=== PATIENT | male | born 1970 | race Caucasian/White ===

== ENCOUNTER 2017-06-16 06:13 | Emergency (ER) | payer OTHER ==
[2017-06-16] MEDS: ACETAMINOPHEN 500 MG TAB PO (07:22)
[2017-06-16] MEDS: KETOROLAC 30 MG INJ IV (07:25)
[2017-06-16 07:32] LABS: ADD MAN DIFF? NO
[2017-06-16 07:39] LABS: BASOPHIL # 0.1 10^3/ul (0.0-0.1); BASOPHILS % 0.5 % (0.0-2.0); EOSINOPHILS # 0.1 10^3/ul (0.0-0.5); EOSINOPHILS % 0.5 % (0.0-7.0); HEMATOCRIT 38.2 % (42.0-52.0); HEMOGLOBIN 13.5 g/dl (14.0-18.0); LYMPHOCYTES # 1.7 10^3/ul (0.8-2.9); MEAN CORPUSCULAR HEMOGLOBIN 30.9 pg (29.0-33.0); MEAN CORPUSCULAR HGB CONC 35.3 g/dl (32.0-37.0); MEAN CORPUSCULAR VOLUME 87.4 fl (82.0-101.0); MEAN PLATELET VOLUME 8.4 fl (7.4-10.4); MONOCYTE # 1.4 10^3/ul (0.3-0.9); MONOCYTES % 9.2 % (0.0-11.0); NEUTROPHIL # 12.1 10^3/ul (1.6-7.5); NEUTROPHILS % 78.1 % (39.0-77.0); PLATELET COUNT 270 10^3/UL (140-415); RED BLOOD COUNT 4.37 10^6/ul (4.70-6.10); RED CELL DISTRIBUTION WIDTH 11.9 % (11.5-14.5)
[2017-06-16 07:39] LABS: WHITE BLOOD COUNT 15.5 10^3/ul (4.8-10.8)
[2017-06-16 08:00] LABS: ALANINE AMINOTRANSFERASE 26 IU/L (13-69); ALBUMIN 4.4 g/dl (3.3-4.9); ALBUMIN/GLOBULIN RATIO 1.25; ALKALINE PHOSPHATASE 70 IU/L (42-121); ANION GAP 16 (8-16); ASPARTATE AMINO TRANSFERASE 18 IU/L (15-46); BILIRUBIN,INDIRECT 0.5 mg/dl (0-1.1); BILIRUBIN,TOTAL 0.5 mg/dl (0.2-1.3); BLOOD UREA NITROGEN 15 mg/dl (7-20); CALCIUM 9.4 mg/dl (8.4-10.2); CARBON DIOXIDE 31 mmol/L (21-31); CHLORIDE 98 mmol/L (97-110); CREATININE 0.92 mg/dl (0.61-1.24); GLUCOSE 123 mg/dl (70-220); POTASSIUM 4.2 mmol/L (3.5-5.1); SODIUM 141 mmol/L (135-144); TOTAL PROTEIN 7.9 g/dl (6.1-8.1)
[2017-06-16 08:12] LABS: C-REACTIVE PROTEIN 19.8 mg/dl (0.0-0.9)
[2017-06-16] MEDS: SOD CHLORIDE 0.9% 1,000 ML IV (09:10)
[2017-06-16 09:30] LABS: ADD UMIC NO; UR ASCORBIC ACID 40 mg/dL (NEGATIVE); UR BILIRUBIN (Dip) NEGATIVE (NEGATIVE); UR BLOOD (Dip) NEGATIVE (NEGATIVE); UR CLARITY SLIGHTLY CLOUDY (CLEAR); UR COLOR YELLOW (YELLOW); UR GLUCOSE (Dip) NEGATIVE (NEGATIVE); UR KETONES (Dip) TRACE mg/dL (NEGATIVE); UR LEUKOCYTE ESTERASE (Dip) NEGATIVE Leu/ul (NEGATIVE); UR MUCUS MODERATE /HPF (NONE SEEN); UR NITRITE (Dip) NEGATIVE (NEGATIVE); UR RBC 1 /HPF (0-5); UR SPECIFIC GRAVITY (Dip) 1.027 (1.003-1.030); UR TOTAL PROTEIN (Dip) NEGATIVE (NEGATIVE); UR UROBILINOGEN (Dip) NEGATIVE (NEGATIVE); UR WBC 1 /HPF (0-5)
[2017-06-16] MEDS: IOHEXOL 350MG/ML 50 ML BTL ×2 (09:53)
[2017-06-16] MEDS: SOD CHLORIDE 0.9% 100 ML (09:53)
[2017-06-16 10:19] LABS: ERYTHROCYTE SEDIMENTATION RATE 90 mm/Hr (0-15)
[2017-06-16 11:08] LABS: LACTIC ACID 0.8 mmol/L (0.5-2.0)
[2017-06-16 15:14] LABS: LACTIC ACID 1.2 mmol/L (0.5-2.0)
[2017-06-16] MEDS: HYDROCODONE/APAP (5/325) TAB PO (15:16)
[2017-06-16] MEDS: LIDOCAINE 1% (MDV) 20 ML INJ SC (16:02)
[2017-06-16] MEDS: CEFTRIAXONE 1 GM INJ IM (16:02)
[2017-06-16 16:51] LABS: LACTIC ACID 1.4 mmol/L (0.5-2.0)
== END 2017-06-16 16:54 | disposition home or self-care (01) ==
LOC: FTE 06:13 → E/R 16:54
DX: M54.5 Low back pain (principal); J18.1 Lobar pneumonia, unspecified organism
CPT/HCPCS: 36415; 71045; 71275; 72146; 72148; 80053; 81001; 81003; 83605; 85025; 85651; 86140; 87040; 96372; 96374; 99285-25